=== PATIENT | female | born 1970 | race Caucasian/White ===

== ENCOUNTER → 2023-07-14 16:47 | Outpatient (REF) | payer OTHER, SELFPAY | LOC: HWRAD 16:47 | PROVIDERS: ATTENDING PHYSICIAN Internal Medicine | DX: R05.1 Acute cough (principal) | CPT/HCPCS: 71046 ==

== ENCOUNTER → 2023-08-24 13:27 | Outpatient (REF) | payer OTHER, SELFPAY | LOC: PAVMRI 13:27 | PROVIDERS: ATTENDING PHYSICIAN Orthopaedic Surgery; FAMILY PHYSICIAN Family Medicine | DX: L02.611 Cutaneous abscess of right foot (principal) | CPT/HCPCS: 73720; A9575 ==

== ENCOUNTER → 2023-09-13 19:12 | Outpatient (REF) | payer OTHER, SELFPAY | LOC: MRI 19:12 | PROVIDERS: ATTENDING PHYSICIAN Hospitalist; FAMILY PHYSICIAN Family Medicine | DX: M06.09 Rheumatoid arthritis without rheumatoid factor, multiple sites (principal) | CPT/HCPCS: 73220; A9575 ==

== ENCOUNTER → 2023-09-14 19:01 | Outpatient (REF) | payer OTHER, SELFPAY | LOC: MRI 19:01 | PROVIDERS: ATTENDING PHYSICIAN Hospitalist; FAMILY PHYSICIAN Family Medicine | DX: M06.09 Rheumatoid arthritis without rheumatoid factor, multiple sites (principal) | CPT/HCPCS: 73220; A9575 ==

== ENCOUNTER → 2024-03-27 15:41 | Outpatient (REF) | payer OTHER, SELFPAY | LOC: HWRAD 15:41 | PROVIDERS: ATTENDING PHYSICIAN Internal Medicine | DX: Z87.891 Personal history of nicotine dependence (principal) | CPT/HCPCS: 71271 ==

== ENCOUNTER → 2024-04-18 14:38 | Outpatient (REF) | payer OTHER, SELFPAY | LOC: HWWDC 14:38 | PROVIDERS: ATTENDING PHYSICIAN Internal Medicine; FAMILY PHYSICIAN Hospitalist | DX: Z12.31 Encounter for screening mammogram for malignant neoplasm of breast (principal); Z78.0 Asymptomatic menopausal state | CPT/HCPCS: 77063; 77067; 77080 ==

== ENCOUNTER → 2024-11-27 12:36 | Outpatient (REF) | payer OTHER, SELFPAY | LOC: RAD 12:36 | PROVIDERS: ATTENDING PHYSICIAN Internal Medicine | DX: R63.4 Abnormal weight loss (principal); R74.8 Abnormal levels of other serum enzymes | CPT/HCPCS: 71270; 74178; Q9967 ==

== ENCOUNTER 2025-01-10 15:47 | Emergency (ER) | payer OTHER, SELFPAY ==
[2025-01-10 15:50] VITALS: BP 107/70
--- NOTE | 2025-01-10 17:07 | ED.GENMED ---
History of Present Illness
General
Chief Complaint: Back Pain
Source: patient
Exam Limitations: none
Time Seen by Provider: 01/10/25 16:28
Nursing documentation reviewed up to this point in time: agreed with
History of Present Illness
History of Present Illness:
54 yo female recovering alcoholic according to records, Subutex DC'd 4 mos ago, gets Sublocade q 2 months, states she developed pain left lower back radiating down buttock to knee about 2 weeks ago. Saw SHANTELL Abraham 10 days ago and finished
prednisone taper with no relief. Went to her pain management doctor yesterday, had her Effexor DC'd and started on Lyrica 50 mg TID and Duloxitine 30 mg BID. She also takes Adderal 20 mg BID.
She denies loss of bowel or bladder control but has been urinating more than usual lateley. Denies abdominal pain/fever/n/v/d/c.
Past History
Past History
ED Past Medical History: Cancer (Breast) and Other (Pancreatitis)
ED Past Surgical History: Orthopedic (estela in femur)
Social History
Tobacco: Smoker
Alcohol: Former
Drug: None
Personal: Single
Living: with family
Employment: Employed
Family History
Family History: Other (Noncontributory)
Review of Systems
Review of Systems
Allergies reviewed?: Yes
All Other Systems: ROS reviewed and negative except as documented in HPI and ROS
Constitutional: Denies fever
Respiratory: Denies trouble breathing
Cardiac: Denies chest pain
ABD/GI: Denies abdominal pain, nausea, vomiting, diarrhea or constipated
: Reports frequency; Denies dysuria, incontinence, difficulty voiding, urgency or discharge
Musculoskeletal: Reports back pain
Neurological: Denies weakness or numbness
Phy Exam
Physical Exam
Physical Exam:
GENERAL: No acute distress. A&Ox3.
CONSTITUTIONAL: Afebrile.
EYES: clear, conjunctivae normal
ENMT: moist mucus membranes, Pharynx nl
RESPIRATORY: Regular respirations, nonlabored, lungs clear.
CARDIOVASCULAR: Regular rate and rhythm, no murmurs, no rubs.
GI: Soft, nontender, normal BS
MUSCULOSKELETAL: Tender left paralumbar STs, mid left buttock. Full ROM both LE's with ease and minimal discomfort. Neg bilateral SLR. Moves with ease. Well perfused.
SKIN: Warm, dry, pink
PSYCH: Normal mood and affect. Well kept, interactive and appropriate
NEUROLOGIC: Awake, alert and oriented. No focal neurological deficits
Course
Orders/Labs/Results
Orders:
Orders
01/10/25 17:23
Urinalysis Reflex To Culture Urgent
Date Specimen was Collected: 01/10/25
Time Specimen was Collected: 17:18
Urine Microscopic Reflex Cult Urgent
Urine Culture Urgent
TRAAN Source: U
Specimen Description:
Date Specimen was Collected: 01/10/25
Time Specimen was Collected: 17:18
01/10/25 17:26
Ketorolac [Toradol] 30 mg IM NOW STA
Abnormal Lab Results
01/10/25
17:23
Ur Occult Blood Reflex 3+ A
(Negative)
Leukocyte Esterase Rfl 3+ A
(Negative)
Urine RBC 21-25 A /HPF
(0-2)
Urine WBC (Reflex) 26-30 A /HPF
(0-5)
Urine Bacteria (Reflex) Moderate A
(Negative)
Urine Albumin (Reflex) 1+ A
(Neg - Trace)
Vital Signs
Initial and Last Documented VS:
Initial Vital Signs
Temp Pulse Resp BP Pulse Ox
98.2 F 107 16 107/70 99
01/10/25 15:50 01/10/25 15:50 01/10/25 15:50 01/10/25 15:50 01/10/25 15:50
Last Documented Vital Signs
Temp Pulse Resp BP Pulse Ox
98.2 F 90 18 120/56 99
01/10/25 15:50 01/10/25 18:27 01/10/25 18:27 01/10/25 18:27 01/10/25 18:27
MDM/Problems Addressed
Differential Diagnosis Includes:
sciatica, low back strain, lumbar disc protrusion/rupture
MDM/Problems Addressed:
54 yo female recovering alcoholic according to records, Subutex DC'd 4 mos ago, gets Sublocade q 2 months, states she developed pain left lower back radiating down buttock to knee about 2 weeks ago. Saw SHANTELL Abraham 10 days ago and finished
prednisone taper with no relief. Went to her pain management doctor yesterday, had her Effexor DC'd and started on Lyrica 50 mg TID and Duloxitine 30 mg BID. She also takes Adderal 20 mg BID.
She denies loss of bowel or bladder control but has been urinating more than usual lateley. Denies abdominal pain/fever/n/v/d/c.
Afebrile, NAD
Pt OOB and ambulated to BR
6:15 p.m.
Pt requesting to be discharged does not want to wait for U/A results.
*Pulse Oximetry
SaO2: 99
Oxygen Mode of Delivery: Room air
ED Attending Note
-
Portions of this chart may have been created with voice recognition software.� Occasional wrong word or��sound alike� substitutions may have occurred due to the inherent limitations of voice recognition software.
Discharge Plan
Departure
Patient Disposition: Home (Routine Discharge)
Date of Disposition: 01/10/25
Time of Disposition: 18:17
Patient with high blood pressure during this ER visit?: No
Condition: Good
Discharge Problem:
Acute left-sided back pain with sciatica
Instructions: Low Back Pain (DC), Sciatica (DC)
Prescriptions:
New
prednisone 10 mg Tablet
See Rx Instructions .ROUTE .COMPLEX Qty: 30 0RF
Rx Instructions:
Take By Mouth:
40 mg daily x3 days, 30 mg daily x3 days,
20 mg daily x3 days, 10 mg daily x3 days.
No Action
dextroamphetamine-amphetamine [Adderall] 20 mg Tablet
20 mg PO BID
Patient Comments:
adderall on back, when patient runs she is to start vyvanse 50mg daily
duloxetine [Cymbalta] 30 mg Capsule,Delayed Release(Dr/Ec)
30 mg PO BID
pregabalin [Lyrica] 50 mg Capsule
50 mg PO TID
Cosentyx 150 mg/mL Syringe
150 mg SC Q4W
Sublocade 100 mg/0.5 mL Solution, Extended Rel Syringe
100 mg SC [id number]
Referrals:
Lai Petersen MD [Non-Admitting Privileges, Orthopedics] - Next open appointment
UNKNOWN - PT DOES,NOT KNOW [Family Provider]
Activity Restrictions/Additional Instructions:
As we discussed, I sent a prescription to your pharmacy for a steroid taper.
Ibuprofen 600 mg (with food) every 6 hours as needed for pain.
See your orthopedic doctor in 2 weeks if not much improved by then.
Interventions
Interventions:
*Risk Screen - Suicide Last Done: 01/10/25 15:50
*Neglect/Abuse Screening Last Done: 01/10/25 15:50
*Nursing Disposition Last Done: 01/10/25 18:28
ED-Musculoskeletal Assessment Last Done: 01/10/25 17:27
Discharge Date and Time
Discharge Date/Time: 01/10/25 18:28
Print Language: [place]
[2025-01-10] MEDS: TORADOL 30 MG IM (17:38)
[2025-01-10 17:47] LABS: Urine Character Clear (Clear)
[2025-01-10 18:27] VITALS: BP 120/56
[2025-01-10 19:40] LABS: Urine Red Blood Cell 21-25 /HPF (0-2); Urine Urothelial Cell 0-2 /LPF (FEW); Urine White Cell 26-30 /HPF (0-5)
== END 2025-01-10 18:28 | disposition home or self-care (01) ==
LOC: EMR 15:47
PROVIDERS: Registered Nurse; EMERGENCY PHYSICIAN Emergency Medicine
DX: M54.32 Sciatica, left side (principal); F10.20 Alcohol dependence, uncomplicated; F17.200 Nicotine dependence, unspecified, uncomplicated; Z85.3 Personal history of malignant neoplasm of breast
CPT/HCPCS: 99284; 96372; 81003; 81015; 87086

== ENCOUNTER → 2025-04-06 18:21 | Outpatient (REF) | payer OTHER, SELFPAY | LOC: PAVMRI 18:21 | PROVIDERS: ATTENDING PHYSICIAN Internal Medicine | DX: M54.32 Sciatica, left side (principal) | CPT/HCPCS: 72148 ==

== ENCOUNTER → 2025-04-20 06:59 | Outpatient (REF) | payer OTHER, SELFPAY | LOC: RAD 06:59 | PROVIDERS: ATTENDING PHYSICIAN Urology; FAMILY PHYSICIAN Internal Medicine | DX: R31.29 Other microscopic hematuria (principal) | CPT/HCPCS: 74178; Q9967 ==